=== PATIENT | female | born 1945 | race Caucasian/White ===

== ENCOUNTER 2024-02-23 08:22 | Emergency (ER) | payer MEDICARE, OTHER, SELFPAY ==
[2024-02-23 08:25] VITALS: BP 119/88
--- NOTE | 2024-02-23 08:49 | ED.GENMED ---
History of Present Illness
General
Chief Complaint: Abdominal Pain
Source: patient
Exam Limitations: none
Time Seen by Provider: 02/23/24 08:27
Nursing documentation reviewed up to this point in time: agreed with
History of Present Illness
History of Present Illness:
78-year-old female presenting to the emergency department today with concerns of somewhat diffuse abdominal pain increased to the lower abdomen left side over the past 4 days. Does have a history of diverticulitis feels slightly different than
usual. No fevers no nausea vomiting or changes in bowel movements.
Past History
Past History
ED Past Medical History: GERD (Patient takes [id number]-tyx-povhuci Prilosec) and Other (Breast cancer with radiation 2014, 2 lumpectomies since that required no treatment.)
ED Past Surgical History: Cholecystectomy
Social History
Tobacco: Non-smoker
Alcohol: None
Personal:
Living: with family
Employment: Retired
Review of Systems
Review of Systems
Allergies reviewed?: Yes
All Other Systems: ROS reviewed and negative except as documented in HPI and ROS
Phy Exam
Physical Exam
Physical Exam:
GENERAL: Alert , in no apparent distress
EYE: pupils equal and reactive
NECK: Supple, no significant adenopathy.
ENT: o/p clr, mmm.
CARDIAC: Regular rate and rhythm .
LUNGS: Clear breath sounds bilaterally, no acute respiratory distress, no wheezes/rales/rhonchi
ABDOMEN: Vague diffuse abdominal pain maximal to the left lower quadrant
NEUROLOGICAL: Alert and oriented, no focal neuro deficits
SKIN: Warm and dry, skin intact.
MUSCULOSKELETAL: No edema, well perfused.
PSYCH: Normal and appropriate interaction.
Course
Orders/Labs/Results
Orders:
Orders
02/23/24 08:44
CT Abd/Pel (IV only)-[facility] only Urgent
Comment:
Reason For Exam: left sided abd pain
02/23/24 09:02
Complete Blood Count/With Diff Urgent
Comprehensive Metabolic Panel Urgent
Lipase Urgent
Urinalysis Reflex To Culture Urgent
Date Specimen was Collected: 02/23/24
Time Specimen was Collected: 08:53
Urine Microscopic Reflex Cult Urgent
Urine Culture Urgent
NAMITA Source: U
Specimen Description:
Date Specimen was Collected: 02/23/24
Time Specimen was Collected: 08:53
02/23/24 09:31
Ketorolac [Toradol] 15 mg .ROUTE .STK-MED ONE
02/23/24 09:41
Ketorolac [Toradol] 15 mg IV NOW STA
02/23/24 11:41
Amoxicillin 875 mg/Clav 125 mg [Augmentin 875 mg/125 mg] 1 tablet PO NOW STA
Abnormal Lab Results
02/23/24
09:02
Absolute Neuts (auto) 7.6 H 10^3/uL
(1.4-6.5)
Absolute Monos (auto) 1.0 H 10^3/uL
(0.1-0.6)
Lymphocytes % 14.3 L %
(20.5-51.1)
Monocytes % 10.1 H %
(1.7-9.3)
Glucose 121 H mg/dl
(70-99)
Leukocyte Esterase Rfl 1+ A
(Negative)
Urine Bacteria (Reflex) Moderate A
(Negative)
Urine Albumin (Reflex) 1+ A
(Neg - Trace)
02/23/24 09:02
02/23/24 09:02
Vital Signs
Initial and Last Documented VS:
Initial Vital Signs
Temp
98.0 F
02/23/24 08:23
Last Documented Vital Signs
Temp Pulse Resp BP Pulse Ox
98.0 F 80 16 130/69 98
02/23/24 08:23 02/23/24 10:38 02/23/24 10:38 02/23/24 10:38 02/23/24 10:38
MDM/Problems Addressed
MDM/Problems Addressed:
78-year-old female presenting to the emergency department today with concerns of abdominal discomfort persisting over the past 4 days no associated symptoms. Afebrile normal vital signs upon arrival. Reproducible discomfort mainly to the left side
of the abdomen. Plan for CT scan for further assessment. Patient found to have mild acute uncomplicated diverticulitis on CT scan. Plan for outpatient treatment return precautions given.
*Critical Care Note
Total Time (30-74mins, 75-104mins- exclusive of procedures): Not Applicable
ED Attending Note
-
Portions of this chart may have been created with voice recognition software.� Occasional wrong word or��sound alike� substitutions may have occurred due to the inherent limitations of voice recognition software.
Discharge Plan
Departure
Patient Disposition: Home (Routine Discharge)
Date of Disposition: 02/23/24
Time of Disposition: 11:58
Patient with high blood pressure during this ER visit?: No
Condition: Good
Covid-19: Not Applicable
Discharge Problem:
Diverticulitis
Instructions: Diverticulitis (DC)
Prescriptions:
New
amoxicillin-pot clavulanate 875-125 mg tablet
1 tab PO BID 7 Days Qty: 14 0RF
No Action
hydrocodone-acetaminophen 1 TABLET tablet
1 - 2 tab PO Q4HPRN PRN (Reason: moderate to severe pain) Qty: 15 0RF
hydrocodone-acetaminophen 1 TABLET tablet
1 - 2 tab PO Q4HPRN PRN (Reason: moderate to severe pain) Qty: 10 0RF
hydrocodone-acetaminophen 1 TABLET tablet
1 tab PO Q4HPRN PRN (Reason: pain) Qty: 12 0RF
ondansetron HCl 4 MG tablet
4 mg PO TIDPRN PRN (Reason: Nausea) Qty: 12 0RF
Calcium With Vitamin D
1 tab PO DAILY
Aspirin
81 mg PO DAILY
famotidine 40 MG tablet
40 mg PO QPM
Multivitamin
1 tab PO DAILY
Omeprazole
20 mg PO DAILY
Triple-Flex
1 tab PO TID
Referrals:
Conor Beth MD [Active] - Follow up in 10 days
Mario Anderson MD [Family Provider] -
Activity Restrictions/Additional Instructions:
You came to the emergency department today with concerns of abdominal discomfort. You are found to have diverticulitis. Please take Augmentin twice daily for neck 7 days and gradually increase your diet. Return to the emergency department for any
worsening, new or concerning symptoms.
Interventions
Interventions:
*Risk Screen - Suicide Last Done: 02/23/24 08:23
*General Assessment Last Done: 02/23/24 10:04
*Neglect/Abuse Screening Last Done: 02/23/24 08:23
ED- Fall Risk Assessment Last Done: 02/23/24 10:00
*ED COVID-19 Vaccine History Last Done: 02/23/24 08:23
OW-Rdrcsr-Xfmdgysvpw Assessment Last Done: 02/23/24 09:59
Discharge Date and Time
Print Language: AMHARIC
[2024-02-23 09:13] LABS: % Basophils 0.3 % (0-2); % Eosinophils 0.7 % (0-6); % Immature Granulocytes 0.3 % (0-0.5); % Lymphocytes 14.3 % (20.5-51.1); % Monocytes 10.1 % (1.7-9.3); % Neutrophils 74.3 % (42.2-75.2); Absolute Eosinophils 0.1 10^3/uL (0-0.7); Absolute Lymphocytes 1.5 10^3/uL (1.2-3.4); Absolute Neutrophils 7.6 10^3/uL (1.4-6.5); Hematocrit 38.5 % (37.0-47.0); Hemoglobin 13.5 g/dL (12.0-16.0); Mean Corp Hgb Conc. 35.1 g/dL (33.0-37.0); Mean Corpuscular Hgb 30.6 pg (27.0-31.0); Mean Corpuscular Volume 87.3 fL (81.0-99.0); Mean Platelet Volume 10.2 fL (7.4-10.4); Nucleated Red Blood Cells % 0 %; Platelet Count 207 10^3/uL (130-400); Red Blood Cell Count 4.41 10^6/uL (4.20-5.40); Red Cell Dist. Width 12.2 % (11.5-14.5); White Blood Cell Count 10.2 10^3/uL (4.8-10.8)
[2024-02-23 09:15] LABS: Urine Albumin 1+ (Neg - Trace); Urine Bilirubin Negative (Negative); Urine Character Clear (Clear); Urine Color Yellow; Urine Glucose Negative (Negative); Urine Ketone Negative (Negative); Urine Leukocyte 1+ (Negative); Urine Nitrite Negative (Negative); Urine Occult Blood Negative (Negative); Urine Urobilinogen Negative (Neg - 1+)
[2024-02-23 09:25] LABS: ALT (SGPT) 21 U/L (0-35); AST (SGOT) 25 U/L (14-36); Alkaline Phosphatase 77 U/L (38-126); Blood Urea Nitrogen 13 mg/dl (7-17); Calcium 9.1 mg/dl (8.4-10.2); Carbon Dioxide 27 mmol/L (22-30); Chloride 102 mmol/L (98-107); Glucose 121 mg/dl (70-99); Potassium 3.7 mmol/L (3.5-5.1); Sodium 141 mmol/L (135-145); Total Bilirubin 0.8 mg/dl (0.2-1.3); Total Protein 6.5 g/dl (6.3-8.2); Urine Amorphous Seen; Urine Urothelial Cell 0-2 /LPF (FEW); eGFR > 60.00
[2024-02-23 09:27] LABS: Urine Mucus Few
[2024-02-23 09:28] LABS: Urine Red Blood Cell 0-2 /HPF (0-2)
[2024-02-23 09:29] LABS: Urine Bacteria Moderate (Negative)
[2024-02-23] MEDS: TORADOL 15 MG IV (09:41)
[2024-02-23 10:38] VITALS: BP 130/69
[2024-02-23 10:39] LABS: Lipase 78 U/L (23-300)
[2024-02-23] MEDS: AUGMENTIN 875 MG/125 MG 1 TABLET PO (12:26)
[2024-02-23 12:30] VITALS: BP 116/74
== END 2024-02-23 12:30 | disposition home or self-care (01) ==
LOC: EMR 08:22
PROVIDERS: Physician Assistant; EMERGENCY PHYSICIAN Emergency Medicine; FAMILY PHYSICIAN Family Medicine
DX: K57.92 Diverticulitis of intestine, part unspecified, without perforation or abscess without bleeding (principal); K21.9 Gastro-esophageal reflux disease without esophagitis; Z85.3 Personal history of malignant neoplasm of breast; Z92.3 Personal history of irradiation; Z90.49 Acquired absence of other specified parts of digestive tract; Z88.5 Allergy status to narcotic agent
CPT/HCPCS: 99284; 96374; 74177; 80053; 81003; 81015; 83690; 85025; 87086; Q9967

== ENCOUNTER → 2024-12-28 12:09 | Outpatient (REF) | payer MEDICARE, OTHER, SELFPAY ==
[2024-12-28 15:47] LABS: Hematocrit 37.5 % (37.0-47.0); Hemoglobin 12.6 g/dL (12.0-16.0); Mean Corp Hgb Conc. 33.6 g/dL (33.0-37.0); Mean Corpuscular Volume 86.6 fL (81.0-99.0); Nucleated Red Blood Cells % 0 %; Platelet Count 258 10^3/uL (130-400); Red Cell Dist. Width 12.5 % (11.5-14.5)
== END ==
LOC: HWLAB 12:09
PROVIDERS: ATTENDING PHYSICIAN Family Medicine
DX: R79.9 Abnormal finding of blood chemistry, unspecified (principal)
CPT/HCPCS: 36415; 85025

== ENCOUNTER → 2025-02-27 13:12 | Outpatient (REF) | payer MEDICARE, OTHER, SELFPAY | LOC: HWRCS 13:12 | PROVIDERS: ATTENDING PHYSICIAN Internal Medicine Cardiovascular Disease; FAMILY PHYSICIAN Family Medicine | DX: R06.02 Shortness of breath (principal) | CPT/HCPCS: 93306 ==

== ENCOUNTER 2025-03-23 15:19 | Inpatient (IN) | payer MEDICARE, OTHER, SELFPAY ==
[2025-03-23] VITALS (8 sets, daily range): BP systolic 128–148; BP diastolic 55–73; BMI 38.0
[2025-03-23 11:44] LABS: Hematocrit 36.4 % (37.0-47.0); Hemoglobin 12.4 g/dL (12.0-16.0); Mean Corp Hgb Conc. 34.1 g/dL (33.0-37.0); Mean Corpuscular Volume 84.8 fL (81.0-99.0); Nucleated Red Blood Cells % 0 %; Platelet Count 246 10^3/uL (130-400); Red Cell Dist. Width 13.1 % (11.5-14.5)
[2025-03-23 11:58] LABS: ALT (SGPT) 29 U/L (0-35); AST (SGOT) 33 U/L (14-36); Albumin 4.0 g/dl (3.5-5.0); Alkaline Phosphatase 70 U/L (38-126); Blood Urea Nitrogen 28 mg/dl (7-17); Calcium 9.8 mg/dl (8.4-10.2); Carbon Dioxide 25 mmol/L (22-30); Chloride 101 mmol/L (98-107); Glucose 120 mg/dl (70-99); Lipase 58 U/L (23-300); Potassium 3.8 mmol/L (3.5-5.1); Sodium 135 mmol/L (135-145); Total Protein 6.7 g/dl (6.3-8.2); eGFR 46.05
--- NOTE | 2025-03-23 12:54 | ED.GENMED ---
History of Present Illness
<SPIKE Gardiner - Last Filed: 03/23/25 14:42>
General
Chief Complaint: Abdominal Pain
Source: patient
Exam Limitations: none
Time Seen by Provider: 03/23/25 12:44
Nursing documentation reviewed up to this point in time: agreed with
History of Present Illness
History of Present Illness:
Patient is a 79-year-old female presents to the ER for evaluation. She started with pain in her abdomen 2 days ago. He does feel similar to when she had diverticulitis in the past.00 she denies any nausea vomiting diarrhea. Denies any fevers.
She had increased pain last night which is what prompted her to come to the ER today. She does report 6 weeks ago she had a UTI and at that time she did not have symptoms. She denies any urinary frequency urgency today. Patient did move her
bowels though felt mildly constipated this morning.
Past History
<SPIKE Gardiner - Last Filed: 03/23/25 14:42>
Past History
ED Past Medical History: GERD (Patient takes [id number]-xef-frmjgsb Prilosec) and Other (Breast cancer with radiation 2014, 2 lumpectomies since that required no treatment.)
ED Past Surgical History: Cholecystectomy
Social History
Tobacco: Non-smoker
Alcohol: None
Personal:
Living: with family
Employment: Retired
Phy Exam
<SPIKE Gardiner - Last Filed: 03/23/25 14:42>
General Physical Exam
General Presentation: no apparent distress
General age: appears stated age
General Skin: warm and dry
General Habitus: normal
General Mental: alert
General Hydration: appears well hydrated
Cardiovascular Exam
Cardiovascular Exam: regular rate/rhythm, no murmur and normal peripheral pulses
Gastrointestinal Exam
Gastrointestinal Exam: soft and other (+ lower/left lower abd tenderness )
Neurological Exam
Neurological Exam: alert and oriented x3
Musculoskeletal Exam
Musculoskeletal Exam: full ROM
Skin Exam
Skin Exam: normal color and warm/dry
Psychiatric Exam
Psychiatric Exam: normal mood/affect
Course
<SPIKE Gardiner - Last Filed: 03/23/25 14:42>
Orders/Labs/Results
Orders:
Orders
03/23/25 11:28
Complete Blood Count/With Diff Urgent
Comprehensive Metabolic Panel Urgent
Lipase Urgent
03/23/25 13:04
CT Abd/Pel (IV only)-[facility] only Urgent
Comment:
Reason For Exam: lower abd pain
03/23/25 13:07
0.9% Sodium Chloride 1000 ml [Nss] 1,000 ml IV BOLUS
03/23/25 13:08
Morphine Sulfate 2 mg IV NOW STA
03/23/25 13:18
UA Reflex to Culture [Urinalysis Reflex To Culture] Urgent
Date Specimen was Collected: 03/23/25
Time Specimen was Collected: 13:17
Urine Microscopic Reflex Cult Urgent
Urine Culture Urgent
NAMITA Source: U
Specimen Description:
Date Specimen was Collected: 03/23/25
Time Specimen was Collected: 13:17
03/23/25 13:44
Ondansetron Injectable [Zofran] 4 mg IV NOW STA
03/23/25 14:39
Piperacillin/Tazo 3.375 Gram [Zosyn] 3.375 gram in 50 ml IV NOW
Abnormal Lab Results
03/23/25 03/23/25
13:18
WBC 22.6 H 10^3/uL
(4.8-10.8)
Hct 36.4 L %
(37.0-47.0)
MPV 10.6 H fL
(7.4-10.4)
Abs Immat Gran (auto) 0.1 H 10^3/uL
(0-0.05)
Absolute Neuts (auto) 19.9 H 10^3/uL
(1.4-6.5)
Absolute Monos (auto) 1.1 H 10^3/uL
(0.1-0.6)
Immature Gran % 0.6 H %
(0-0.5)
Neutrophils % 88.0 H %
(42.2-75.2)
Lymphocytes % 6.4 L %
(20.5-51.1)
BUN 28 H mg/dl
(7-17)
Creatinine 1.2 H mg/dL
(0.6-1.0)
Glucose 120 H mg/dl
(70-99)
Ur Occult Blood Reflex 2+ A
(Negative)
Urine Bilirubin 1+ A
(Negative)
Leukocyte Esterase Rfl 3+ A
(Negative)
Urine RBC 7-10 A /HPF
(0-2)
Urine WBC (Reflex) 60-70 A /HPF
(0-5)
Urine Bacteria (Reflex) Moderate A
(Negative)
Urine Albumin (Reflex) 3+ A
(Neg - Trace)
03/23/25 11:28
03/23/25 11:28
Vital Signs
Initial and Last Documented VS:
Initial Vital Signs
Temp Pulse Resp BP Pulse Ox
97.3 F 95 18 128/71 99
03/23/25 11:10 03/23/25 11:10 03/23/25 11:10 03/23/25 11:10 03/23/25 11:10
Last Documented Vital Signs
Temp Pulse Resp BP Pulse Ox
97.3 F 67 15 129/63 97
03/23/25 11:10 03/23/25 12:48 03/23/25 12:48 03/23/25 12:48 03/23/25 13:03
Manager Clinical Services consulted with Physician
Manager Clinical Services consulted with physician?: Yes
Name of Physician Consulted: Shad
<Poncho Kulkarni MD - Last Filed: 03/23/25 14:41>
Orders/Labs/Results
Orders:
Orders
03/23/25 11:28
Complete Blood Count/With Diff Urgent
Comprehensive Metabolic Panel Urgent
Lipase Urgent
03/23/25 13:04
CT Abd/Pel (IV only)-[facility] only Urgent
Comment:
Reason For Exam: lower abd pain
03/23/25 13:07
0.9% Sodium Chloride 1000 ml [Nss] 1,000 ml IV BOLUS
03/23/25 13:08
Morphine Sulfate 2 mg IV NOW STA
03/23/25 13:18
UA Reflex to Culture [Urinalysis Reflex To Culture] Urgent
Date Specimen was Collected: 03/23/25
Time Specimen was Collected: 13:17
Urine Microscopic Reflex Cult Urgent
Urine Culture Urgent
NAMITA Source: U
Specimen Description:
Date Specimen was Collected: 03/23/25
Time Specimen was Collected: 13:17
03/23/25 13:44
Ondansetron Injectable [Zofran] 4 mg IV NOW STA
03/23/25 14:39
Piperacillin/Tazo 3.375 Gram [Zosyn] 3.375 gram in 50 ml IV NOW
Abnormal Lab Results
03/23/25 03/23/25
13:18
WBC 22.6 H 10^3/uL
(4.8-10.8)
Hct 36.4 L %
(37.0-47.0)
MPV 10.6 H fL
(7.4-10.4)
Abs Immat Gran (auto) 0.1 H 10^3/uL
(0-0.05)
Absolute Neuts (auto) 19.9 H 10^3/uL
(1.4-6.5)
Absolute Monos (auto) 1.1 H 10^3/uL
(0.1-0.6)
Immature Gran % 0.6 H %
(0-0.5)
Neutrophils % 88.0 H %
(42.2-75.2)
Lymphocytes % 6.4 L %
(20.5-51.1)
BUN 28 H mg/dl
(7-17)
Creatinine 1.2 H mg/dL
(0.6-1.0)
Glucose 120 H mg/dl
(70-99)
Ur Occult Blood Reflex 2+ A
(Negative)
Urine Bilirubin 1+ A
(Negative)
Leukocyte Esterase Rfl 3+ A
(Negative)
Urine RBC 7-10 A /HPF
(0-2)
Urine WBC (Reflex) 60-70 A /HPF
(0-5)
Urine Bacteria (Reflex) Moderate A
(Negative)
Urine Albumin (Reflex) 3+ A
(Neg - Trace)
03/23/25 11:28
03/23/25 11:28
Vital Signs
Initial and Last Documented VS:
Initial Vital Signs
Temp Pulse Resp BP Pulse Ox
97.3 F 95 18 128/71 99
03/23/25 11:10 03/23/25 11:10 03/23/25 11:10 03/23/25 11:10 03/23/25 11:10
Last Documented Vital Signs
Temp Pulse Resp BP Pulse Ox
97.3 F 67 15 129/63 97
03/23/25 11:10 03/23/25 12:48 03/23/25 12:48 03/23/25 12:48 03/23/25 13:03
<SPIKE Gardiner - Last Filed: 03/23/25 14:42>
MDM/Problems Addressed
Differential Diagnosis Includes:
Not limited to diverticulitis UTI colitis
MDM/Problems Addressed:
Patient is a 79-year-old female history of diverticulitis presents with abdominal pain felt similar to diverticulitis in the past. She denies any UTI symptoms fever chills. She did move her bowels today however felt a little constipated. Patient
denies any fever she is afebrile white count however elevated at 22,000. BUN 28 creatinine 1.2. Patient was given fluids and nausea medicine along with small dose of morphine incidentally patient does have a urinary tract infection as well. CAT
scan suspicious for recurrent distal acute diverticulitis however possible small bowel obstruction as well. Will order antibiotics and plan for admission will notify surgery.
<SPIKE Gardiner - Last Filed: 03/23/25 14:42>
*Radiology
Radiology exam reviewed: radiology read reviewed
*Pulse Oximetry
SaO2: 97
Oxygen Mode of Delivery: Room air
Patient hypoxic: no
*Critical Care Note
Total Time (30-74mins, 75-104mins- exclusive of procedures): Not Applicable
<SPIKE Gardiner - Last Filed: 03/23/25 14:42>
Patient Management
Discussion with other providers: [employer] Test Engineer (surg DR Garcia )
ED Attending Note
<SPIKE Gardiner - Last Filed: 03/23/25 14:42>
-
Portions of this chart may have been created with voice recognition software.� Occasional wrong word or��sound alike� substitutions may have occurred due to the inherent limitations of voice recognition software.
<Poncho Kulkarni MD - Last Filed: 03/23/25 14:41>
ED Attending Note
Patient seen and examined by attending physician: Yes
I performed the substantive portion of visit, reviewed & personally made and approve the management plan that is documented in note by myself or FRAN.: Yes
ED Attending Note:
3 days of progressive left lower quadrant pain. No nausea or vomiting. No bloody or mucousy stools. History of diverticulitis. Feels similar.
On exam patient is nontoxic. Stable vital signs. No respiratory distress. Regular rate and rhythm. Abdomen is soft. No rebound or guarding no mass or hernia. Mild left lower quadrant tenderness. Labs are stable except for an elevated white
count. CT shows diverticulitis. Possible secondary partial small bowel obstruction. Warrants inpatient IV antibiotics and management
Discharge Plan
Departure
Patient Disposition: Admit
Date of Disposition: 03/23/25
Time of Disposition: 14:41
Admit to: Med/Surg
Admit to doctor: hospitalist
Presentation/result/management discussed w/ accepting MD/DO: Hospitalist
Patient with high blood pressure during this ER visit?: Yes
Condition: Fair
Covid-19: Not Applicable
Discharge Problem:
Acute sigmoid diverticulitis, Acute UTI, Partial small bowel obstruction
Prescriptions:
No Action
Calcium With Vitamin D
1 tab PO DAILY
Aspirin
81 mg PO DAILY
Multivitamin
1 tab PO DAILY
Referrals:
Mario Anderson MD [Family Provider, Family Practice]
Interventions
Interventions:
*Risk Screen - Suicide Last Done: 03/23/25 11:10
*General Assessment Last Done: 03/23/25 11:10
*Neglect/Abuse Screening Last Done: 03/23/25 12:47
*ED- Fall Risk Assessment Last Done: 03/23/25 12:47
*ED COVID-19 Vaccine History Last Done: 03/23/25 12:47
*ED Influenza Vaccine History Last Done: 03/23/25 11:10
PO-Xdfjzy-Slacyawxps Assessment Last Done: 03/23/25 12:49
Discharge Date and Time
Print Language: NICARAGUAN
[2025-03-23] MEDS: NSS 1000 IV (13:24)
[2025-03-23] MEDS: MORPHINE SULFATE 2 MG IV (13:24)
[2025-03-23 13:44] LABS: Urine Character Slightly Cloudy (Clear)
[2025-03-23] MEDS: ZOFRAN 4 MG IV ×2 (13:51→19:34)
[2025-03-23 14:17] LABS: Urine Urothelial Cell 0-2 /LPF (FEW)
[2025-03-23 14:19] LABS: Urine White Cell 60-70 /HPF (0-5); Urine White Cell Cast 0-2 /LPF
--- NOTE | 2025-03-23 14:44 | HPS.HSE ---
Family Physician
-
Family Physician: Mario Anderson
Chief Complaint
-
Abdominal pain
History of Present Illness
This is a 79 y.o female with past medical history of GERD, breast Ca s/p XRT and lumpectomies x 2, s/p cholecystectomy presenting ED with abdominal pain.
Patient reports h/o diverticulitis in the past and prior cholecystectomy. She reports 3 days of bilateral lower quadrant abdominal pain. Denies, nausea, vomiting or diarrhea. Denies fevers or chills. She recently was diagnosed with UTI several
weeks ago and currently reports increased frequency. Due to preparing holiday meals she decided to wait prior to coming to ED. She feels the pain is similar to her prior episode of diverticulitis which did not require admission.
In ED she was afebrile, BP 129/63, pulse 67 with sat of 97% on RA. WBC 22.6, normal Hgb and platelet counts. Electrolytes were normal with normal BUN and creatinine.
Medical History
Past Medical History
Past Medical History: Reports Cancer (breast ca s/p lumpectomy and XRT) and GERD
Past Surgical History: Reports Cholecystectomy
Social History
Alcohol: None
Drug: None
Family History
Family History: Not pertinent
Allergies / Home Medications
Allergies reflects when Allergies were last updated in [employer].
Home Medications with original date entered in [employer]
Allergy/Medication List:
Allergies
Allergy/AdvReac Type Severity Reaction Status Date / Time
codeine Allergy Nausea Verified 03/23/25 11:10
Home Medications
Aspirin 81 mg PO DAILY 05/04/19
Calcium With Vitamin D 1 tab PO DAILY 05/04/19
Multivitamin 1 tab PO DAILY 05/04/19
Review of Systems
-
Constitutional: Reports No Symptoms
EENT: Reports No Symptoms
Respiratory: Reports No Symptoms
Cardiac: Reports No Symptoms
Abdomen/GI: Reports Abdominal Pain
: Reports No Symptoms
Musculoskeletal: Reports No Symptoms
Skin: Reports No Symptoms
Neurological: Reports No Symptoms
Endocrine: Reports No Symptoms
Hematologic/Lymphatic: Reports No Symptoms
Psych: Reports No Symptoms
Physical Exam
Vital Signs
Vital Signs
Temp Pulse Resp BP Pulse Ox
97.3 F 67 15 129/63 97
03/23/25 11:10 03/23/25 12:48 03/23/25 12:48 03/23/25 12:48 03/23/25 13:03
Physical Exam
General: Well Developed, Well Nourished and No Apparent Distress
HEENT: NormoCephalic, Moist mucous membranes and Atraumatic
Respiratory: Clear
Cardiac: S1/S2 and Regular Rhythm; No Murmur or Rub
GI: Soft, Non Tender, Non Distended and Normal Bowel Sounds; No Organomegaly
Rectal: Deferred by Provider
Musculoskeletal: No Clubbing, No Cyanosis and No Edema
Skin: No Rash
Neuro: AO x 3 and Nonfocal/grossly intact
Laboratory Results
-
03/23/25 11:28
03/23/25 11:28
Laboratory Results
Total Bilirubin 1.2 mg/dl (0.2-1.3) 03/23/25 11:28
AST 33 U/L (14-36) 03/23/25 11:28
ALT 29 U/L (0-35) 03/23/25 11:28
Alkaline Phosphatase 70 U/L (38-126) 03/23/25 11:28
Lipase 58 U/L (23-300) 03/23/25 11:28
Data Reviewed
-
CT Scan: Report Reviewed by me
Lab Data: Labs Reviewed by me
Old Records: Reviewed
Impression/Plan
-
IMPRESSION:
79 y.o with 3 days of abdominal pain and increased urination found to have recurrent acute diverticulitis
PLAN:
Recurrent acute diverticulitis complicated by possible early bowel obstruction
- admit to med/surg
- NPO for now
- IV zosyn
- antiemetic and pain control
- hold off on NG tube at this time
- IV fluids
- colorectal surgery consult
SBO - Question of possible SBO (adjacent loop of small bowel, more proximal small bowel mildly dilated with air-fluid levels measuring up to 3.2 cm.) No IBD. Possible from prior adhesion or acute divertic
- npo as above,
- no vomiting, pain mild at this time, no hold off on NG
- general surgery consulted (requested colorectal)
UTI - + u/a, currently appears asymptomatic
- urine cultures sent
- on abx as above for now
DVT PPX - lovenox sq
Code status - Full Code
[2025-03-23] MEDS: ZOSYN 50 IV ×2 (14:53→19:36)
--- NOTE | 2025-03-23 15:37 | CM ---
Chart reviewed. Spoke with patient and her at ED bedside
Lives with in [facility] [address] with 1st floor set up
Independent no DME
Dr. Mario Anderson as PCP
[facility]
no hx of VN nor SNF
DCP is to go home and can drive at DC
CM to follow up with any dcp needs
--- NOTE | 2025-03-23 16:06 | CON.CRS ---
Consultation
-
Date/Time Consultation Requested: 03/23/2025
Date/Time Consultation Performed: 03/23/2025
Performing Provider: Bambi
Reason for Consultation: Diverticulitis
Medical History
-
Chief Complaint: Abdominal pain
History of Present Illness:
Patient is a 79-year-old female with 2 to 3 days of left lower quadrant abdominal pain. She said she would have come in through the ER yesterday if it were not Thanksgiving. She comes in today due to the symptoms. Denies fevers or chills. Admits
to nausea right after a shot of morphine earlier today in the ER. Blood work in the ER reveals a white count of 22.6. Hemoglobin 12.4. Electrolytes with mildly elevated creatinine of 1.2. Her baseline is 0.8. Urinalysis is arguably positive.
She underwent imaging in the form of the CT of the abdomen and pelvis today at which the images and report are available for review. I reviewed both. This reveals inflammation of the sigmoid consistent with diverticulitis and was read as such. To
my eyes there a few tiny flecks of extraluminal air nearby. This was not commented on in the report. There is mild small bowel dilatation nearby which was read as possible partial small bowel obstruction. The patient is being brought into the
hospital on the hospitalist service. She has been started empirically on antibiotics.
Historically, she had a cholecystectomy by Dr. Garcia in the past. No prior intestinal surgeries. She does admit to a prior history of diverticulitis. On review of [place] there appears to have been 2 prior CAT scans confirming diverticulitis in
the past. Last year on 02/23/[address] showing sigmoid diverticulitis which was uncomplicated. On 11/06/[address] showing what was read as distal descending diverticulitis antibiotics looks like proximal sigmoid diverticulitis.
This was also uncomplicated. Prior CTs in the system otherwise without diverticulitis. In regards to colonoscopies, she has had them intermittently in the past and has had a history of polyps and diverticulosis. Her last colonoscopy was by
[facility] on 05/05/2022. This showed pandiverticulosis and a benign polyp.
I was asked to see the patient for colorectal surgical opinion regarding her situation.
Past Medical History
Past Medical History: Cancer (Breast) and GERD
Past Surgical History: Cholecystectomy and Other (Lumpectomy with radiation)
Social History
Tobacco: Non-Smoker
Alcohol: None
Personal:
Living: With Family
Family History
Family History: Reviewed & Not Pertinent
Allergies / Home Medications
Allergy/AdvReac Type Severity Reaction Status Date / Time
codeine Allergy Nausea Verified 03/23/25 11:10
�Medication �Instructions �Recorded �Confirmed �Type
aspirin 81 mg tablet,delayed 81 mg PO HS Blood Clot 05/04/19 03/23/25 History
release Prevention/Tx
therapeutic multivitamin 1 tab PO QPM Supplement 05/04/19 03/23/25 History
calcium carbonate 500 mg PO DAILY Supplement 03/23/25 03/23/25 History
omeprazole 20 mg tablet,delayed 20 mg PO DAILY Gastrointestinal 03/23/25 03/23/25 History
release Issue
vit 2 tab PO DAILY@1200 Supplement 03/23/25 03/23/25 History
[id number]
500 mg-50 mg-25 mg-40 mg tablet
(Bioflex)
Review of Systems
-
A 10 point review of systems was completed, and was negative except as per HPI.
Physical Exam
Vital Signs
Temp 97.3 F 03/23/25 11:10
Pulse 67 03/23/25 12:48
Resp Rate 15 03/23/25 12:48
Blood pressure 129/63 03/23/25 12:48
SaO2 97 03/23/25 13:03
03/22/25 03/23/25 03/24/25
06:59 06:59 06:59
Actual Weight 97.2 kg
Body Mass Index (BMI) 38.0
Lab Results / Allergies
03/23/25 11:
03/23/25 11:
WBC 22.6 10^3/uL (4.8-10.8) H 03/23/25 11:28
Hgb 12.4 g/dL (12.0-16.0) 03/23/25 11:
Hct 36.4 % (37.0-47.0) L 03/23/25 11:
Plt Count 246 10^3/uL (130-400) 03/23/25 11:
Abs Immat Gran (auto) 0.1 10^3/uL (0-0.05) H 03/23/25 11:
Neutrophils % 88.0 % (42.2-75.2) H 03/23/25 11:
Allergy/AdvReac Type Severity Reaction Status Date / Time
codeine Allergy Nausea Verified 03/23/25 11:10
Physical Exam
General: Well Developed
Respiratory: Clear
Cardiac: S1/S2
GI: Soft, Tender (Left lower quadrant without guarding or rebound) and Distended (Mild)
Skin: Warm and Dry
Neuro: AO x 3
Psych: Calm
Data Reviewed
-
CT Scan: Image Personally Visualized and interpreted, Report Reviewed by me, Discussed with Patient and Discussed with Family
Labs: Labs Reviewed by me, Discussed with Patient and Discussed with Family
Assessment / Plan
-
79-year-old female with sigmoid diverticulitis with microperforation and possible secondary partial small bowel obstruction versus ileus. I am not convinced of the obstruction. She is still having bowel function apparently. On review of the
record, it appears she has had [address] proven attacks of sigmoid diverticulitis in the past. She also has diverticular disease on prior colonoscopies. I discussed the situation with the patient and her at the bedside. Agree with
admission to the hospital service and maximum medical measures. Agree with IV hydration, diet restriction, and empiric IV antibiotics. Will follow along. No need for surgical intervention at this point in time. Presuming she improves with
medical measures, she will need to follow-up with me in the office for further discussions.
[2025-03-23] MEDS: D5LR 1000 IV (17:16)
[2025-03-23] MEDS: DILAUDID 0.5 MG IV (17:16)
[2025-03-23] MEDS: LOVENOX 40 MG SC (17:16)
[2025-03-24] MEDS: ZOSYN 50 IV ×4 (02:16→21:03)
[2025-03-24] MEDS: D5LR 1000 IV ×2 (06:13→21:01)
[2025-03-24] MEDS: DILAUDID 0.5 MG IV (06:21)
[2025-03-24] MEDS: ZOFRAN 4 MG IV ×2 (06:29→21:24)
[2025-03-24 07:50] VITALS: BP 167/86
[2025-03-24 07:54] LABS: Hematocrit 33.4 % (37.0-47.0); Hemoglobin 11.4 g/dL (12.0-16.0); Mean Corp Hgb Conc. 34.1 g/dL (33.0-37.0); Mean Corpuscular Volume 87.9 fL (81.0-99.0); Platelet Count 196 10^3/uL (130-400); Red Cell Dist. Width 13.2 % (11.5-14.5)
[2025-03-24 08:02] LABS: Blood Urea Nitrogen 19 mg/dl (7-17); Calcium 8.9 mg/dl (8.4-10.2); Carbon Dioxide 28 mmol/L (22-30); Chloride 103 mmol/L (98-107); Estimated Creatinine Clearance 63 ml/min; Glucose 135 mg/dl (70-99); Potassium 3.3 mmol/L (3.5-5.1); Sodium 135 mmol/L (135-145); eGFR > 60.00
[2025-03-24] MEDS: TYLENOL 650 MG PO (08:05)
[2025-03-24] MEDS: NSS (PRESERVATIVE FREE) 10 ML IV (08:05)
[2025-03-24] MEDS: PROTONIX IV 40 MG IV (08:05)
--- NOTE | 2025-03-24 10:10 | W.PN.HOSP.TC ---
Today's Communication/Plan
-
see plan
Assessment / Plan
Assessment / Plan
Gen: NAD, AAOx3.
Eyes: EOMI, PERRLA, no scleral icterus.
Neck: supple.
CV: RRR, +S1/S2, no m/r/g.
Resp: CTAB, no rales, wheezes, or rhonchi.
Abd: +BS, soft, LLQ TTP, ND
Skin: No rashes.
Neuro: CN 2-12 intact, non-focal.
Psych: Normal mood and affect.
CT A/P: Findings suspicious for recurrent distal sigmoid ACUTE DIVERTICULITIS. Small bowel adjacent to the site of diverticulitis with transition, proximal mild dilatation with air-fluid levels, cannot exclude mild partial accompanying small bowel
obstruction. No free air or gross accompanying well-formed abnormal focal fluid collection, evaluation for bladder markedly limited without oral contrast. Fluid-filled nondilated transverse and right colon.
Recurrent acute diverticulitis complicated by possible early bowel obstruction:
-imaging above
-cont IV Zosyn
-CRS following
-cont NPO/IVFs/pain control
-leukocytosis improving
Obesity due to excess calories:
- Affects all aspects of care
- Encourage weight loss
Hypokalemia:
-40meq IV K
FULL/Lovenox
Anticipated Discharge: > 48 hours
Subjective/Interval History
-
Date of Service: March 24, 2025
LLQ abd pain slightly improved from admission. Vomiting O/N.
Objective Data
-
Labs:
Laboratory Results
03/24/25
07:07
WBC 14.4 H
Hgb 11.4 L
Hct 33.4 L
Plt Count 196 D
Sodium 135
Potassium 3.3 L
Chloride 103
Carbon Dioxide 28
BUN 19 H
Creatinine 0.8
Glucose 135 H
Calcium 8.9
Vital Signs:
Vital Signs
Temp Pulse Resp BP Pulse Ox
102.4 F H 98 16 167/86 92
03/24/25 07:50 03/24/25 07:50 03/24/25 07:50 03/24/25 07:50 03/24/25 07:50
I&O
03/23/25 03/24/25 03/25/25
06:59 06:59 06:59
Intake Total 1050 / 1050
Balance 1050 / 1050
[2025-03-24] MEDS: KCL 270 MEQ IV (11:01)
--- NOTE | 2025-03-24 12:19 | W.PN.GS2 ---
Addendum entered and electronically signed by Bandar Garcia MD 03/24/25 12:37:
I saw and examined the patient.
The Oracle Database Developer's note was reviewed and I agree with the note.
Comment: Fever noted, emesis overnight noted, slight clinical improvement, passing flatus, belly soft, diffuse mild ttp maximally at LLQ, nd, plan for cont non-op mgmt with iv abx, OK for cld
Original Note:
Today's Communication / Plan
-
trial of clears
c/w iv abx
Assessment / Plan
-
79-year-old female with sigmoid diverticulitis with microperforation and possible secondary partial small bowel obstruction versus ileus. She has had [address] proven attacks of sigmoid diverticulitis in the past.
Tmax of 102.4 early this am, afebrile since Tylenol. VSS
Leukocytosis improving
+n/v overnight with bilious emesis but none this am
Pain improved
Plan:
Ok for clears as tolerated
C/W IV ABX
Follow labs/exams
Analgesics/antiemetics prn
No emergent surgery planned currently, will follow for improvement with current measures
Medical management as per primary team
Subjective Data
-
Date of Service: March 24, 2025
Pt seen and examined at bedside with Dr. Garcia. Denies active nausea but had n/v overnight with bilious emesis. Passing flatus. Febrile this am, feeling better s/p tylenol. Pain somewhat improved overall.
Objective Data
-
Intake and Output
03/23/25 03/24/25 03/25/25
06:59 06:59 06:59
Intake Total 1050 / 1050 300 / 300
Balance 1050 / 1050 300 / 300
Intake:
IV fluids (Total) 950 / 950
IV piggybacks 100 / 100 300 / 300
Other:
Number of approximated MODERATE 1 1
amounts of urine
Number of immeasurable emeses? 2
Vital Signs
Temp Pulse Resp BP Pulse Ox
98.9 F 98 16 167/86 92
03/24/25 10:00 03/24/25 07:50 03/24/25 07:50 03/24/25 07:50 03/24/25 11:45
Lab Results
03/24/25 07:07
03/24/25 07:07
Calcium 8.9 mg/dl (8.4-10.2) 03/24/25 07:07
Total Bilirubin 1.2 mg/dl (0.2-1.3) 03/23/25 11:28
AST 33 U/L (14-36) 03/23/25 11:28
ALT 29 U/L (0-35) 03/23/25 11:28
Alkaline Phosphatase 70 U/L (38-126) 03/23/25 11:28
Total Protein 6.7 g/dl (6.3-8.2) 03/23/25 11:28
Albumin 4.0 g/dl (3.5-5.0) 03/23/25 11:28
Physical Exam
-
NAD
ABD soft, mild gen tenderness, LLQ moderately tender, nd
[2025-03-24 15:20] VITALS: BP 156/83
[2025-03-24] MEDS: TORADOL 10 MG IV ×2 (15:42→21:25)
[2025-03-24] MEDS: LOVENOX 40 MG SC (17:34)
[2025-03-24 23:14] VITALS: BP 152/72
[2025-03-25] MEDS: ZOSYN 50 IV ×4 (03:02→20:06)
[2025-03-25] MEDS: ZOFRAN 4 MG IV ×2 (03:17→12:38)
--- NOTE | 2025-03-25 05:32 | PTCARENOTE ---
0300: Reached out to COLD ROLLING COORDINATOR. Pt vomited 500 ml. Xray ordered. Pt made NPO
[2025-03-25 07:00] VITALS: BP 168/103; BP 173/97
[2025-03-25 07:10] LABS: Hematocrit 32.9 % (37.0-47.0); Hemoglobin 11.4 g/dL (12.0-16.0); Mean Corp Hgb Conc. 34.7 g/dL (33.0-37.0); Mean Corpuscular Volume 85.7 fL (81.0-99.0); Platelet Count 206 10^3/uL (130-400); Red Cell Dist. Width 13.0 % (11.5-14.5)
[2025-03-25 07:49] LABS: Blood Urea Nitrogen 15 mg/dl (7-17); Calcium 9.0 mg/dl (8.4-10.2); Carbon Dioxide 27 mmol/L (22-30); Chloride 103 mmol/L (98-107); Estimated Creatinine Clearance 63 ml/min; Glucose 142 mg/dl (70-99); Magnesium 1.7 mg/dl (1.6-2.3); Potassium 3.4 mmol/L (3.5-5.1); Sodium 135 mmol/L (135-145); eGFR > 60.00
--- NOTE | 2025-03-25 08:25 | W.PN.HOSP.TC ---
Today's Communication/Plan
-
see plan
Assessment / Plan
Assessment / Plan
Gen: NAD, AAOx3.
Eyes: EOMI, PERRLA, no scleral icterus.
Neck: supple.
CV: remains RRR, +S1/S2, no m/r/g.
Resp: remains CTAB, no rales, wheezes, or rhonchi.
Abd: +BS, soft, LLQ TTP (much less than yesterday), ND
Skin: No rashes.
Neuro: CN 2-12 intact, non-focal.
Psych: Normal mood and affect.
CT A/P: Findings suspicious for recurrent distal sigmoid ACUTE DIVERTICULITIS. Small bowel adjacent to the site of diverticulitis with transition, proximal mild dilatation with air-fluid levels, cannot exclude mild partial accompanying small bowel
obstruction. No free air or gross accompanying well-formed abnormal focal fluid collection, evaluation for bladder markedly limited without oral contrast. Fluid-filled nondilated transverse and right colon.
Recurrent acute diverticulitis complicated by possible early bowel obstruction:
-imaging above
-cont IV Zosyn
-CRS following
-cont NPO/IVFs/pain control
-leukocytosis improved from admission
Obesity due to excess calories:
-affects all aspects of care
-encourage weight loss
Hypokalemia:
-40meq IV K
FULL/Lovenox
Anticipated Discharge: > 48 hours
Subjective/Interval History
-
Date of Service: March 25, 2025
No new complaints.
Objective Data
-
Labs:
Laboratory Results
03/25/25
06:09
WBC 15.3 H
Hgb 11.4 L
Hct 32.9 L
Plt Count 206
Sodium 135
Potassium 3.4 L
Chloride 103
Carbon Dioxide 27
BUN 15
Creatinine 0.8
Glucose 142 H
Calcium 9.0
Vital Signs:
Vital Signs
Temp Pulse Resp BP Pulse Ox
98.7 F 91 16 173/97 92
03/25/25 07:00 03/25/25 07:00 03/25/25 07:00 03/25/25 07:00 03/25/25 07:00
I&O
03/24/25 03/25/25 03/26/25
06:59 06:59 06:59
Intake Total 1050 / 1050 350 / 350
Output Total 500 / 500
Balance 1050 / 1050 -150 / -150
--- NOTE | 2025-03-25 09:43 | W.PN.GS2 ---
Addendum entered and electronically signed by Bandar Garcia MD 03/25/25 13:24:
I saw and examined the patient.
The Bullet Assembly Press Operator's note was reviewed and I agree with the note.
Comment: Emesis overnight, denies nausea presently, belly soft, mild-mod ttp to BLQ, WBC up slightly, plan for NGT if vomiting persists, may benefit from PO contrast study tomorrow if bowel function not improved
Original Note:
Today's Communication / Plan
-
npo/iv abx
Assessment / Plan
-
79-year-old female with sigmoid diverticulitis with microperforation and possible secondary partial small bowel obstruction versus more likely an ileus. She has had [address] proven attacks of sigmoid diverticulitis in the past.
No further fevers, VSS
+n/v overnight with bilious emesis.
Reviewed CT from admission as well as XR from this am, suspect ileus
Leukocytosis persists, slight up trend likely secondary to ileus
Pain continues to improve
Plan:
Keep NPO
C/W IV ABX
Follow labs/exams
Analgesics/antiemetics prn
No emergent surgery planned currently, will follow for improvement with current measures
Medical management as per primary team
Subjective Data
-
Date of Service: March 25, 2025
Pt seen and examined at bedside. N/V overnight, feels less nauseated today. Pain improving but sore to the lower pelvis/llq as well as under her left ribcage s/p vomiting.
Objective Data
-
Intake and Output
03/24/25 03/25/25 03/26/25
06:59 06:59 06:59
Intake Total 1050 / 1050 350 / 350
Output Total 500 / 500
Balance 1050 / 1050 -150 / -150
Intake:
IV fluids (Total) 950 / 950
IV piggybacks 100 / 100 350 / 350
Output:
Emesis 500 / 500
Other:
Number of approximated MODERATE 1 1
amounts of urine
Number of immeasurable emeses? 2
Vital Signs
Temp Pulse Resp BP Pulse Ox
98.7 F 91 16 173/97 92
03/25/25 07:00 03/25/25 07:00 03/25/25 07:00 03/25/25 07:00 03/25/25 07:00
Lab Results
03/25/25 06:09
03/25/25 06:09
Calcium 9.0 mg/dl (8.4-10.2) 03/25/25 06:09
Magnesium 1.7 mg/dl (1.6-2.3) 03/25/25 06:09
Total Bilirubin 1.2 mg/dl (0.2-1.3) 03/23/25 11:28
AST 33 U/L (14-36) 03/23/25 11:28
ALT 29 U/L (0-35) 03/23/25 11:28
Alkaline Phosphatase 70 U/L (38-126) 03/23/25 11:28
Total Protein 6.7 g/dl (6.3-8.2) 03/23/25 11:28
Albumin 4.0 g/dl (3.5-5.0) 03/23/25 11:28
Physical Exam
-
NAD
ABD soft, LLQ to pelvis mildly tender, nd
[2025-03-25] MEDS: PROTONIX IV 40 MG IV (09:58)
[2025-03-25] MEDS: NSS (PRESERVATIVE FREE) 10 ML IV (09:58)
[2025-03-25] MEDS: TORADOL 10 MG IV (09:59)
[2025-03-25] MEDS: KCL 270 MEQ IV (09:59)
[2025-03-25] MEDS: D5/0.45%NACL 1000 IV (12:18)
[2025-03-25 15:00] VITALS: BP 170/86
[2025-03-25] MEDS: LOVENOX 40 MG SC (18:18)
[2025-03-25 19:00] VITALS: BP 168/103
[2025-03-25 22:17] VITALS: BP 122/47
[2025-03-26] MEDS: ZOSYN 50 IV ×4 (02:09→20:21)
[2025-03-26] MEDS: D5/0.45%NACL 1000 IV (03:53)
[2025-03-26 07:20] VITALS: BP 178/99
[2025-03-26 07:33] LABS: Hematocrit 32.2 % (37.0-47.0); Hemoglobin 11.3 g/dL (12.0-16.0); Mean Corp Hgb Conc. 35.1 g/dL (33.0-37.0); Mean Corpuscular Volume 85.4 fL (81.0-99.0); Platelet Count 226 10^3/uL (130-400); Red Cell Dist. Width 12.7 % (11.5-14.5)
[2025-03-26 08:14] LABS: Blood Urea Nitrogen 12 mg/dl (7-17); Calcium 8.6 mg/dl (8.4-10.2); Carbon Dioxide 27 mmol/L (22-30); Chloride 104 mmol/L (98-107); Estimated Creatinine Clearance 63 ml/min; Glucose 138 mg/dl (70-99); Potassium 3.5 mmol/L (3.5-5.1); Sodium 135 mmol/L (135-145); eGFR > 60.00
[2025-03-26] MEDS: NSS (PRESERVATIVE FREE) 10 ML IV (08:52)
[2025-03-26] MEDS: PROTONIX IV 40 MG IV (08:52)
--- NOTE | 2025-03-26 09:36 | W.PN.CRS1 ---
Today's Communication / Plan
-
clears- advised to go slow
IV zosyn
Assessment/Plan
-
79-year-old female with sigmoid diverticulitis with microperforation and possible secondary partial small bowel obstruction versus more likely an ileus. She has had [address] proven attacks of sigmoid diverticulitis in the past.
03/25: xray with ileus
WBC: 12.2 (15.3, 14.4)
vitals normal
Plan:
-Patient is now having BMS and flatus. Will advance to clears. Advised patient to go slow. If nausea, remain npo.
-Continue to trend labs. Added CRP.
-Maintain IVFS
-Continue IV Zosyn
-OOB as tolerated
-No plans for surgery at this time. If she worsens, she would require a colectomy with colostomy creation. Will discuss elective surgery as an outpatient.
Subjective Data
Subjective Data
Date of Service: March 26, 2025
Patient states she feels much better today. She had a large bowel movement this morning. She is passing flatus. Denies any nausea or vomiting. Last time she vomited was yesterday morning. She does not feel bloated. No blood in stools.
Objective Data
-
Vital Signs
Temp Pulse Resp BP Pulse Ox
98.1 F 85 16 178/99 94
03/26/25 07:20 03/26/25 07:20 03/26/25 07:20 03/26/25 07:20 03/26/25 07:20
Intake & Output
03/25/25 03/26/25 03/27/25
06:59 06:59 06:59
Intake Total 350 / 350 1859
Output Total 500 / 500
Balance -150 / -150 1859
Intake:
Oral fluids 760 / 760
IV fluids (Total) 1000 / 1000
IV piggybacks 350 / 350 100 / 100
Output:
Emesis 500 / 500
Other:
Number of approximated MODERATE 1 2
amounts of urine
Lab Results
03/26/25 07:09
03/26/25 07:09
Physical Exam
-
General: No Acute Distress and AOx3
Abdomen: Soft, Non Distended and Non Tender
Skin: Warm and Dry
[2025-03-26 10:34] LABS: C-Reactive Protein 143.10 mg/L (0.0-10.00)
[2025-03-26] MEDS: D5LR IV (11:49)
--- NOTE | 2025-03-26 11:56 | W.PN.HOSP.TC ---
Today's Communication/Plan
-
diet: clears
continue IV abx
CRS following
Assessment / Plan
Assessment / Plan
Assessment:
Recurrent acute diverticulitis complicated by possible early bowel obstruction:
- cont IV Zosyn, day 08/03
- diet: clears
- leukocytosis improved from admission
- CRS following
Obesity due to excess calories
- affects all aspects of care
- encourage weight loss
Hypokalemia:
- corrected; normal values now
DVT ppx: Lovenox
Code: Full
Anticipated Discharge: 24 - 48 hours
Subjective/Interval History
-
Date of Service: March 26, 2025
s/p large BM
+ flatus
no n/v
on clears; advised to go slow
Objective Data
-
Labs:
Laboratory Results
03/26/25
07:09
WBC 12.2 H
Hgb 11.3 L
Hct 32.2 L
Plt Count 226
Sodium 135
Potassium 3.5
Chloride 104
Carbon Dioxide 27
BUN 12
Creatinine 0.8
Glucose 138 H
Calcium 8.6
Vital Signs:
Vital Signs
Temp Pulse Resp BP Pulse Ox
98.1 F 85 16 178/99 94
03/26/25 07:20 03/26/25 07:20 03/26/25 07:20 03/26/25 07:20 03/26/25 07:20
I&O
03/25/25 03/26/25 03/27/25
06:59 06:59 06:59
Intake Total 350 / 350 1859
Output Total 500 / 500
Balance -150 / -150 1859
Physical Exam
-
General: No Apparent Distress
HEENT: Normocephalic and Atraumatic
Respiratory: Negative Wheezes
Cardiac: Regular Rhythm and S1/S2
GI: Soft and Nontender
Genito-urinary: No Costovertebral Tender
Neuro: AO x 3
Psych: Calm
Data Reviewed
-
Total Time Spent with Patient (in minutes): 42
Labs: Labs Reviewed by me
[2025-03-26] MEDS: D5/0.45%NACL IV (14:44)
--- NOTE | 2025-03-26 15:27 | CM ---
Patient seen at bedside in [address] [place] [address]. Patient plan is for discharge home with no needs. CM will continue to follow for discharge planning needs.
Plan; home with no needs anticipated.
[2025-03-26 15:40] VITALS: BP 180/97
--- NOTE | 2025-03-26 16:50 | PTCARENOTE ---
Patient transferred to room 318 on .The patient was transferred with all of her belongings.her daughter was with her as well.Patient transferred via wheelchair with a prn nurse.Report to Letty.
[2025-03-26 17:00] VITALS: BP 168/92
[2025-03-26] MEDS: LOVENOX 40 MG SC (17:41)
[2025-03-26] MEDS: TORADOL 10 MG IV (17:46)
--- NOTE | 2025-03-26 18:13 | PTCARENOTE ---
Pt received from [address] [place] [id number]- report gotten from DIONY Coker. Pt walked into room and now resting comfortably in bed. Pt stated having discomfort in lower abdomen- PRN toradol administered. Pt ordered CLD for dinner. Family members @bedside. Call oconnell is
within reach.
[2025-03-26 23:10] VITALS: BP 157/92
[2025-03-27] MEDS: ZOSYN 50 IV ×2 (02:53→08:26)
[2025-03-27] MEDS: ZOFRAN 4 MG IV (05:17)
[2025-03-27 07:00] VITALS: BP 170/93
[2025-03-27 07:26] LABS: Hematocrit 33.2 % (37.0-47.0); Hemoglobin 11.6 g/dL (12.0-16.0); Mean Corp Hgb Conc. 34.9 g/dL (33.0-37.0); Mean Corpuscular Volume 84.5 fL (81.0-99.0); Platelet Count 243 10^3/uL (130-400); Red Cell Dist. Width 12.5 % (11.5-14.5)
[2025-03-27 07:57] LABS: C-Reactive Protein 65.70 mg/L (0.0-10.00)
[2025-03-27 08:05] LABS: Blood Urea Nitrogen 9 mg/dl (7-17); Calcium 8.6 mg/dl (8.4-10.2); Carbon Dioxide 30 mmol/L (22-30); Chloride 99 mmol/L (98-107); Estimated Creatinine Clearance 72 ml/min; Glucose 98 mg/dl (70-99); Potassium 3.3 mmol/L (3.5-5.1); Sodium 134 mmol/L (135-145); eGFR > 60.00
--- NOTE | 2025-03-27 08:07 | PN.CDI ---
CDI
- -
CDI:
Physician Documentation Request
Admit Date: 03/23/25 15:19
Dear Doctor,
Patient admitted for diverticulitis.
Laboratory Tests
03/23/25 03/24/25
07:07
Creatinine 1.2 H 0.8
Clarify which of the following accurately represents the patient's renal status:
CONNOR, resolved
Rise in creatinine
Other
Criteria for CONNOR*
1 Increase in serum creatinine by > or = to 0.3 mg/dL (> or = to 26.5 micromol/L) within 48 hours, OR
2 Increase in serum creatinine to > or = to 1.5 times baseline, which is known or presumed to have occurred within 7 days, OR
3 Urine volume < 0.5 nL/kg/hour for six hours
Use of terms such as suspected, likely, concern for, or probable (associated with a specific diagnosis that is being evaluated, monitored, or treated as if it exists) are acceptable and can be coded in the inpatient setting, when documented at the
time of discharge.
Thank you,
Maricruz Keith RN, BSN
CDI Specialist
Available via [place] text
Please use your independent medical judgment in providing your response.
*Source: Kidney Disease: Improving Global Outcomes (KDIGO) 2012
[2025-03-27] MEDS: NSS (PRESERVATIVE FREE) 10 ML IV (08:26)
[2025-03-27] MEDS: PROTONIX IV 40 MG IV (08:26)
--- NOTE | 2025-03-27 08:37 | W.PN.HOSP.TC ---
Today's Communication/Plan
-
dc to home
Assessment / Plan
Assessment / Plan
Assessment:
Recurrent acute diverticulitis complicated by possible early bowel obstruction:
- cont IV Zosyn, day 5/; transition to Augmentin at dc
- diet: LRD
- leukocytosis improved from admission
- CRS following
CONNOR
- resolved
Obesity due to excess calories
- affects all aspects of care
- encourage weight loss
Hypokalemia:
- corrected; normal values now
DVT ppx: Lovenox
Code: Full
More than 30 minutes spent in discharge including
Final examination of the patient
Summarizing hospital stay
Instructions for continuing care to all relevant caregivers
Preparation of discharge records, prescriptions, and referral forms
Total time spent (in minutes): 41
Anticipated Discharge: Today
Subjective/Interval History
-
Date of Service: March 27, 2025
pain controlled, on low residue
Objective Data
-
Labs:
Laboratory Results
03/27/25
06:45
WBC 8.7
Hgb 11.6 L
Hct 33.2 L
Plt Count 243
Sodium 134 L
Potassium 3.3 L
Chloride 99
Carbon Dioxide 30
BUN 9
Creatinine 0.7
Glucose 98
Calcium 8.6
Vital Signs:
Vital Signs
Temp Pulse Resp BP Pulse Ox
98.1 F 81 16 170/93 93
03/27/25 07:00 03/27/25 07:00 03/27/25 07:00 03/27/25 07:00 03/27/25 07:00
I&O
03/26/25 03/27/25 03/28/25
06:59 06:59 06:59
Intake Total 1860 / 1860 2060 / 2060
Balance 1859
Physical Exam
-
General: No Apparent Distress
HEENT: Normocephalic and Atraumatic
Respiratory: Negative Wheezes
Cardiac: Regular Rhythm and S1/S2
GI: Soft and Nontender
Musculoskeletal: No Edema
Neuro: AO x 3
Psych: Calm
Data Reviewed
-
Total Time Spent with Patient (in minutes): 41
Labs: Labs Reviewed by me
[2025-03-27 10:49] VITALS: BP 171/90; PULSE 80; O2SAT 94
--- NOTE | 2025-03-27 11:25 | CM ---
Patient seen at bedside
IMM explained & signed. In chart
declines VN
PLAN: Home, no needs
to transport
--- NOTE | 2025-03-27 12:01 | W.PN.CRS1 ---
Today's Communication / Plan
-
Advance to low residue
Possible DC later today
Assessment/Plan
-
79-year-old female with sigmoid diverticulitis with microperforation and possible secondary partial small bowel obstruction versus more likely an ileus. She has had [address] proven attacks of sigmoid diverticulitis in the past.
03/25: xray with ileus
WBC: 8.7 (12.2)
vitals normal
Plan:
-Advance diet to low residue.
-Both WBC and CRP are trending down.
-Continue IV Zosyn
-OOB as tolerated
-No plans for surgery at this time. Okay for discharge later today from our point of view if she is able to tolerate low residue. Will discuss elective surgery as an outpatient.
Subjective Data
Subjective Data
Date of Service: March 27, 2025
Patient states that she feels much better. She had some nausea this a.m. which was very brief and resolved. She is been having bowel movements. Her pain is a 2 out of 10.
Objective Data
-
Vital Signs
Temp Pulse Resp BP Pulse Ox
98.1 F 81 16 170/93 93
03/27/25 07:00 03/27/25 07:00 03/27/25 07:00 03/27/25 07:00 03/27/25 08:30
Intake & Output
03/26/25 03/27/25 03/28/25
06:59 06:59 06:59
Intake Total 1859
Balance 1859
Intake:
Oral fluids 760 / 760 960 / 960
IV fluids (Total) 1000 / 1000 800 / 800
IV piggybacks 100 / 100 300 / 300
Other:
Number of approximated MODERATE 2 3
amounts of urine
Lab Results
03/27/25 06:45
03/27/25 06:45
Physical Exam
-
General: No Acute Distress and AOx3
Abdomen: Soft, Non Distended and Non Tender
Skin: Warm and Dry
--- NOTE | 2025-03-27 12:31 | W.DCSUMMARY ---
Discharge Summary
Discharge Data
Date of Admission: 03/23/25
Date of Discharge: 03/27/25
-
Pending Results: No
Hospital Course
79 y/o F past medical history of GERD, breast Ca s/p XRT and lumpectomies x 2, s/p cholecystectomy presenting ED with abdominal pain on 03/23. CT confirmed recurrent distal sigmoid ACUTE DIVERTICULITIS. Small bowel adjacent to the site of
diverticulitis with transition, proximal mild dilatation with air-fluid levels, cannot exclude mild partial accompanying small bowel obstruction. She was placed on IVF and IV Zosyn. Her SBO resolved and she was able to transition to Low residue
diet. She will discharge home and complete 2 total weeks of augmentin. She will follow up with Colorectal surgery in the coming weeks to setup elective bowel surgery for diverticulosis early in 2025.
Discharge Plan
-
Patient Disposition: Home (Routine Discharge)
Discharge Diagnosis/Procedures: Diverticulitis with microperforation, partial small bowel obstruction
Condition: Fair
Diet: Low Residue
Activity: As tolerated
Referrals:
Poncho Lacy MD [Active, [facility]] - in three to four weeks
Mario Anderson MD [Family Provider, Family Practice]
Prescriptions:
New
amoxicillin-pot clavulanate 875-125 mg tablet
1 tab PO Q12H Qty: 20 0RF
Continued
calcium carbonate 500 mg calcium (1,250 mg) Tablet
500 mg PO DAILY
omeprazole 20 mg Tablet,Delayed Release (Dr/Ec)
20 mg PO DAILY
Bioflex 768-64-58-40 mg Tablet
2 tab PO DAILY@1200
therapeutic multivitamin Tablet
1 tab PO QPM
aspirin 81 mg Tablet,Delayed Release (Dr/Ec)
81 mg PO HS
Discharge Orders:
Discharge Patient (As Directed); Ordered 03/27/25
Ordered By: Ritika Humphrey
Discharge Date and Time
Print Language: LAO
== END 2025-03-27 13:17 | disposition home or self-care (01) | DRG 392 ==
LOC: 3 WEST ACU 15:19
PROVIDERS: Nurse Practitioner; Physician Assistant; Registered Nurse; ADMITTING PHYSICIAN Internal Medicine; ATTENDING PHYSICIAN Internal Medicine; CONSULT PHYSICIAN Surgery; EMERGENCY PHYSICIAN Emergency Medicine; FAMILY PHYSICIAN Family Medicine
DX: K57.20 Diverticulitis of large intestine with perforation and abscess without bleeding (principal); N17.9 Acute kidney failure, unspecified; K56.7 Ileus, unspecified; K21.9 Gastro-esophageal reflux disease without esophagitis; Z90.49 Acquired absence of other specified parts of digestive tract; Z92.3 Personal history of irradiation; Z85.3 Personal history of malignant neoplasm of breast; Z88.5 Allergy status to narcotic agent; Z79.82 Long term (current) use of aspirin; E66.09 Other obesity due to excess calories; Z68.38 Body mass index [BMI] 38.0-38.9, adult; E87.6 Hypokalemia
CPT/HCPCS: 74018; 74177; 80048; 80053; 81003; 81015; 83690; 83735; 85025; 85027; 86140; 87086; 96361; 96365; 96375; 97162; 99284; Q9967

== ENCOUNTER → 2025-04-03 12:45 | Outpatient (REF) | payer MEDICARE, OTHER, SELFPAY | LOC: REG 12:45 | PROVIDERS: ATTENDING PHYSICIAN Surgery | DX: R19.7 Diarrhea, unspecified (principal) | CPT/HCPCS: 87324; 87449 ==